=== PATIENT | female | born 1980 | race Caucasian/White ===

== ENCOUNTER 2020-08-24 15:34 | Emergency (ER) | payer BC, OTHER, SELFPAY ==
--- OUTSIDE RECORDS SUMMARY | 2020-08-24 15:35 | XMS REPORT | Continuity of Care Document ---
:1980 Author Organization [facility] t Address [address] [place] [address] Care Team Providers Name Role Phone Unavailable Unavailable Unavailable Problems Condition Condition Condition Status Onset Resolution Last Treating Co mments Source Name Details Category Date Date Treatment Clinician Date Intractabl Intractabl Problem Active [facility] migraine e migraine Siomara kes - without without [facility] aura and aura and l without without Outpati status status ent migrainosu migrainosu Cl inics s s Constipati Constipati Problem Active [facility] un[facility]ifie unspecifie Me moria d d l constipati constipati Ou tpati on type on type ent Clinics Tension Tension Problem Active [facility] Abnormal Abnormal Problem [facility] Allergies, Adverse Reactions, Alerts This patient has no known allergies or adverse reactions. Medications Ordered Filled Start Stop Current Ordering Indication Dosage Frequency Signature Comments Components Source Medication Medication Date Date Medication? Clinician (SIG) Name Name Robaxin Robaxin 2018-0 2019- No Rosa Isela [address] [facility] Probiotic Probiotic Yes Rosa Isela not [facility] Ibuprofen Ibuprofen Yes Rosa Isela not [facility] Excedrin Excedrin Yes [facility] not [facility]raine [facility] Vitamin C Vitamin C Yes Rosa Isela not [facility] Procedures This patient has no known procedures. Encounters Start End Encounter Admission Attending Care Care Encounter Source Date/Time Date/Time Type Type Clinicians Facility Department ID 2020-07-22 2020-07-[address] [id number] [facility] 09[facility]33[facility]00 09:33:00 [facility] 2019-09-23 2019-09-23 Outpatient Martín Resendizt [id number] [facility] 09:41:00 09:41:00 [facility] Clin[facility] 2019-07-23 2019-07-23 Outpatient Martín Resendizt [id number] [facility] 10:38:00 10:38:00 t [facility] Clin[facility] 2019-05-27 2019-05-27 Outpatient Martín [place] [id number] [facility] 11:00:00 11:00:00 t [facility] 2018-08-27 2018-08-27 Outpatient Martín Resendizt [id number] [facility] 14:31:00 14:31:00 t [facility] Results This patient has no known results.
--- OUTSIDE RECORDS SUMMARY | 2020-08-24 15:35 | XMS REPORT ---
:1980 Author Organization [employer] Care Team Providers Name Role Phone Patito Means Provider Role Unavailable Allergies No Known Allergies Problems Problem Type Condition Code Onset Dates Condition Statu s Problem Abnormal mammogram of left breast R92.8 Active Problem Tension headache G44.209 Active Problem Abnormal mammogram R92.8 Active Problem Constipation, unspecified K59.00 Ac tive constipation type Problem Intractable migraine without aura G43.019 Active and without status migrainosus Medications No Known Medications Results No Known Results Summary Purpose eClinicalWorks Submission
[2020-08-24] MEDS ORDERED: CYCLOBENZAPRINE 10 MG TAB ONE (17:04)
[2020-08-24] MEDS ORDERED: DERMABOND SKIN ADHESIVE TOP ONE (17:04)
[2020-08-24] MEDS ORDERED: HYDROCODONE/APAP 10/325 TAB ONE (17:05)
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
[2020-08-24 19:02] VITALS: BP 136/78; TEMP 98; O2SAT 99
== END 2020-08-24 18:49 | disposition home or self-care (01) ==
LOC: ER 15:34
PROC: 0JQ10ZZ Repair Face Subcutaneous Tissue and Fascia, Open Approach (ICD-10-PCS; principal; 2020-08-24)
DX: S01.81XA Laceration without foreign body of other part of head, initial encounter (principal); M79.18 Myalgia, other site; V49.49XA Driver injured in collision with other motor vehicles in traffic accident, initial encounter
CPT/HCPCS: 70450; 72125; 99284